=== PATIENT | male | born 1985 | race Caucasian/White ===

== ENCOUNTER 2017-03-10 13:01 | Inpatient (IN) | payer OTHER ==
[~2017-03-10] VITALS: Ht 171.4 cm; Wt 107.6 kg
--- NOTE | 2017-03-11 19:19 | ER ---
ADMIT: 03/10/2017 RM/LOC: 411 [facility] MR#: [id number] [address] [address] MERYELVIA [address] [address] Emergency Room Report SEX: M AGE: 31 : 1985 DATE: 03/10/2017 ADDENDUM: A 31-year-old white male with CP since coming in with left leg pain, swelling, redness, it has gotten progressively worse. He has had a white count of 26,000. Lactic is negative. He is not septic, however, leg does look angry. We did an ultrasound, there is no clot. At this time, I spoke with Dr. Pnealoza. He will admit him. We started him on Zosyn and vancomycin. He is more of a rule out sepsis at this time. CONDITION ON DISCHARGE: Serious but stable. Kenton Luu MD/ modl JOB #: [id number] CC: Jagdeep Penaloza MD, Attending Physician Jagdeep Penaloza MD, Family Physician
--- NOTE | 2017-03-12 13:46 | HP ---
ADMIT: 03/10/2017 RM/LOC: 411 [facility] MR#: [id number] [address] ELVIA ORDONEZ [address] [address] History and Physical SEX: M AGE: 31 : 1985 DATE OF SERVICE: CHIEF COMPLAINT: Left leg redness, pain, and swelling. HISTORY OF PRESENT ILLNESS: The patient is a 31-year-old male with a history of cerebral palsy, but otherwise healthy, who presented to clinic in [place] with left lower extremity redness, swelling, and pain. He notes that over the last few days, he has had some intermittent swelling of his lower extremities which is not out of the normal for him. However, he woke up this morning with a red, painful, swollen left lower ankle and huntley region. He went into the clinic to be seen on an outpatient basis where he follows with Alfa James and after drawing some labs, he was transferred here for cellulitis. Labs that were obtained in his primary care office show that he had a white count of 30, and a CRP of 9. Of note, he does have a history of MRSA in the contralateral knee over 10 years ago. Again, he was transferred to the [facility] for higher level of care and IV antibiotics. EMERGENCY ROOM COURSE: Some labs were repeated. He was started on the sepsis pathway. White count is still 26 with 8% bands. Procalcitonin was 1.34, and lactic acid was 1.3. The patient's vitals were pretty stable. He did have venous Doppler which was negative for any blood clot, and a normal chest x- ray, but he was started on IV antibiotics for his cellulitis and admitted for the same diagnosis. PAST MEDICAL HISTORY: Cerebral palsy. PAST SURGICAL HISTORY: Multiple surgeries on lower extremities for cerebral palsy as an . 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. Single. Denies tobacco, alcohol, or drug abuse. REVIEW OF SYSTEMS: A 10-point review of system was performed and is negative except as noted per HPI. MEDICATIONS: None. ALLERGIES: NONE. PHYSICAL EXAMINATION: VITAL SIGNS: Temperature 102.1, pulse 100, respirations 20, blood pressure 136/69, O2 saturation 98% on room air. GENERAL: The patient is awake, alert, and oriented. He is pleasant and conversational. No acute distress. HEENT: Normocephalic and atraumatic. PERRLA. EOMI. Mucous membranes moist. NECK: Supple. No lymphadenopathy. CARDIOVASCULAR: Regular rhythm and rate. No murmurs, rubs, or gallops. Radial and DP pulses are 2+ upper and lower extremities bilaterally. Cap refill is less than 3 seconds. LUNGS: Clear to auscultation bilaterally. ADMIT: 03/10/2017 RM/LOC: 411 [facility] MR#: [id number] [address] ELVIA ORDONEZ [address] [place] [address] History and Physical SEX: M AGE: 31 : 1985 ABDOMEN: Soft, nontender, and nondistended. EXTREMITIES: Right lower extremity shows trace edema. Multiple scars on bilateral lower extremities. Left lower extremity shows a large clearly demarcated area of redness, it is tender to palpation, and warm to touch. No obvious skin wounds or other breaks in the skin. The area of redness has been marked at the borders with a marking pen. NEUROLOGIC: Cranial nerves II through XII are grossly intact. He does have mild dyskinesia of cerebral palsy. LABS AND IMAGING: White count 26, hemoglobin 14.8, and platelets are 175, 8% bands. CMP is grossly normal. Procalcitonin is elevated at 1.34. Lactic acid is 1.3. Venous Doppler of the left lower extremity is negative for any DVT. Chest x-ray shows no acute findings. Blood cultures are pending. ASSESSMENT AND PLAN: 1. Left lower extremity cellulitis. The patient has been started on vanc and Zosyn. He does have a history of methicillin-resistant staphylococcus aureus. Pain and nausea will be controlled. We will repeat a CBC, BMP, and CRP in the morning. 2. Cerebral palsy, stable. Shaan Mcnamara MD Resident / Jagdeep Penaloza MD / tito JOB #: [id number] CC: Jagdeep Penaloza, Attending Physician Jagdeep Penaloza, Family Physician
[2017-03-13] MEDS ORDERED: KEFLEX-DPS500 MG PO (14:20)
[2017-03-13] MEDS ORDERED: NORMAL SALINE FL5 ML IV (14:21)
[2017-03-13] MEDS ORDERED: VANCOCIN-DPS500 MG IV (14:21)
--- NOTE | 2017-03-19 07:57 | DS ---
ADMIT: 03/10/2017 RM/LOC: 411 [facility] MR#: [id number] [address] ELVIA ORDONEZ [address] [address] Discharge Summary SEX: M AGE: 31 : 1985 ADMISSION DATE: 03/10/2017 DISCHARGE DATE: 03/12/2017 DISCHARGE DIAGNOSES: 1. Left lower extremity cellulitis. 2. History of MRSA (methicillin-resistant Staphylococcus aureus). 3. Cerebral palsy. BRIEF HISTORY OF PRESENT ILLNESS: The patient is a 31-year-old male with history of cerebral palsy, but otherwise healthy, who presented to clinic with Alfa James PA-C in [place] with left lower extremity redness, swelling and pain. He has noted this has been gradually worsening over the last few days. In the lab, his white count was 30 and CRP of 9 so he was transferred here for IV antibiotics. Of note, he does have a history of MRSA in the contralateral knee several years ago. The patient was admitted for his cellulitis, he was not septic. He did have an ultrasound in the emergency room of that extremity which did not reveal any blood clot. The patient was started on Vanco and Zosyn IV and admitted to the hospital. HOSPITAL COURSE: The patient focused on elevating his foot throughout the hospital stay. Redness, swelling and pain gradually improved. His white count trended down as well as a CRP. On the , the patient informed us that he did not have any insurance, he was concerned about the [place] and if possible would like IV antibiotics on an outpatient basis. Social Work was consulted and helped us to arrange for outpatient antibiotics at [facility]. Pharmacy was consulted for IV antibiotic recommendations and said that coverage with p.o. Keflex and IV outpatient vancomycin should be sufficient to cover for the majority of likely pathogens. This was arranged. The patient was discharged on the with plans for outpatient vancomycin in [place] and a prescription for p.o. Keflex. DISCHARGE MEDICATIONS: 1. Keflex 500 mg two caps p.o. b.i.d. x10 days. 2. 1.5 g of vancomycin IV q.12 hours. FOLLOWUP: Pertinent records were faxed to Alfa James PA-C. The patient is to follow up with him as an outpatient. Shaan Mcnamara MD Resident / Jagdeep Penaloza MD / rosa mg JOB #: [id number] CC: Jagdeep Penaloza MD, Attending Physician Jagdeep Penaloza MD, Family Physician
== END 2017-03-12 21:43 | disposition home or self-care (01) | DRG 603 ==
LOC: ER 13:01 → 4PCU 15:46
PROVIDERS: ADMIT Family Medicine
DX: L03.116 Cellulitis of left lower limb (principal); I87.2 Venous insufficiency (chronic) (peripheral); F17.200 Nicotine dependence, unspecified, uncomplicated; G80.9 Cerebral palsy, unspecified; Z86.14 Personal history of Methicillin resistant Staphylococcus aureus infection